=== PATIENT | male | born 1975 | race African-American/Black ===

== ENCOUNTER 2021-01-17 17:08 | Outpatient (CLI) | payer OTHER, SELFPAY ==
--- NOTE | ~2021-01-17 | US_ITS ---
EXAMINATION: US venous doppler LE RT EXAM DATE: 01/17/2021 17:45 INDICATION: Right lower extremity DVT, pain. TECHNIQUE: Multiple grayscale, color flow and Doppler images of the right lower extremity deep venous system obtained and reviewed. There is no prior study for comparison. FINDINGS: RIGHT SIDE Common femoral: -------- Normal. Profunda femoral: ------- Normal. Femoral: Thrombosed. Popliteal: Thrombosed. Posterior tibial: --------- Normal. Peroneal: Thrombosed. Gastrocnemius: Thrombosed. Soleus: Not visualized. Greater saphenous: ----- Normal. Lesser saphenous: ------ Not visualized. IMPRESSION: Large amount of right lower extremity deep venous thrombosis. I discussed with the front office staff member Brittaney to determine if patient was held for his positive results. She states that they explained to the patient the reason for staying while the ordering clin ician was notified of results. He declined. We are contacting Bree Savage MD with the resul ts. Reviewed, dictated and finalized at location A. ICIAN UNDERWRITER IMPRESSION: Large amount of right lower extremity deep venous thrombosis. I discussed with the front office staff member Brittaney to determine if patient was held for his positive results. She states that they explained to the patient th e reason for staying while the ordering clinician was notified of results. He d eclined. We are contacting Bree Savage MD with the results.
== END 2021-01-17 17:09 | disposition home or self-care (01) ==
PROVIDERS: PCP Family Medicine; Visit Provider Family Medicine
DX: M79.604 Pain in right leg (principal); I82.891 Chronic embolism and thrombosis of other specified veins
CPT/HCPCS: 93971

== ENCOUNTER 2023-05-26 12:05 | Emergency (ER) | payer OTHER, SELFPAY ==
--- NOTE | ~2023-05-26 | US_ITS ---
EXAMINATION: US venous doppler UE DATE: 05/26/2023 12:50 INDICATION: Left upper extremity swelling TECHNIQUE: Grayscale ultrasound images without and with compression and Doppler ultrasound images of the left upper extremity veins were obtained. COMPARISON: None. FINDINGS: The left internal jugular vein, subclavian vein, axillary vein, brachial veins, basilic vein, cephali c vein, radial vein, and ulnar vein are patent. IMPRESSION: 1. No evidence of deep venous thrombosis. Reviewed, dictated and finalized at location L.
[2023-05-26 12:10] VITALS: BP 140/99; PULSE 94; RESP 16; TEMP 36.5; O2SAT 100
--- NOTE | 2023-05-26 14:43 | ED.EXTPRO ---
HPI - Extremity Problem General Chief complaint: Extremity Problem,Nontraumatic Stated complaint: left hand swelling Time Seen by Provider: 05/26/23 13:01 History of Present Illness HPI Narrative: 47-year-old male with history of lower extremity DVTs and pulmonary embolisms on Eliquis and history of arthritis presented the emergency department for evaluation of swelling of the right hand. Patient states when he woke up this morning he was not having significant swelling of the right hand but the swelling did worsen throughout the course of the day. Patient did use ice and elevation on the left hand and it did improve. Patient states that over the course of the day began to worsen again. Patient states he has been taking his Eliquis. Patient denies any associated chest pain or shortness of breath. Related Data Allergies Allergy/AdvReac Type Severity Reaction Status Date / Time No Known Allergies Allergy Unverified 05/26/23 12:21 Review of Systems Review of Systems: All systems reviewed & are unremarkable except as noted in HPI and below PMFSH Past Medical History Medical History (Updated 05/27/23 @ 00:00 by Liu England) Avascular necrosis of bones of both hips Hypertension Inflammatory arthritis Myalgia Pulmonary embolism Surgical History Surgical History No pertinent past surgical history Family History Family History Other Diabetes mellitus Heart disease Hypertension Social History Social History Smoking status: Current every day smoker Alcohol intake: never Substance use: never Substance use type: does not use Lack of Transportation: No Lack of Food: Never True Current Housing: I Have Housing Concerned About Future Housing: No Difficulty Paying Gas/Electric Bills: No Difficulty Paying for Meds: No Currently Unemployed: No Education: Decline to Answer Difficulty w/ Childcare or Family Care: No Living arrangements: with family Exam Narrative: APPEARANCE: Well appearing, no pain, no distress, well-nourished. HEAD: normocephalic, atraumatic. EYES: PERRLA/EOMI, conjunctivae clear. NOSE: Normal no drainage EARS:TMS clear with good light reflex. THROAT: Pharynx clear, no exudate. NECK: Supple. No adenopathy, no masses. RESPIRATORY: Airway patent, respirations nonlabored. Clear to auscultation bilaterally, no rales, rhonchi, wheezing. CARDIOVASCULAR: Regular rate and rhythm without murmurs rubs or gallops. ABDOMINAL: Soft, nontender, nondistended, normal bowel sounds MUSCULOSKELETAL: Left upper extremity swelling with no tenderness to palpation, neurovascular intact. NEURO: Alert. Cranial nerves II through XII intact. Good gait. Good coordination SKIN: Warm, dry. Normal Color PSYCHIATRIC: Normal affect/mood. Course Course Emergency Course: 47-year-old male with left upper hand swelling. Ultrasound was negative for the left upper extremity. Patient does feel that his arthritic pain is worsened in the left hand. Patient does take Lyrica and Eliquis. Patient has no prior history of GI bleed and is not diabetic. No breakdowns in the skin and no lymphadenopathy, no concern for cellulitis or underlying infection. Patient will be started on a short course of steroids for potential arthritic flare causing the localized swelling. Patient will call to have follow-up with his primary care physician. All questions concerns were addressed Vital Signs Vital signs: Vital Signs Temperature 97.7 F 05/26/23 12:10 Pulse Rate 94 05/26/23 12:10 Respiratory Rate 16 05/26/23 12:10 Blood Pressure 140/99 H 05/26/23 12:10 Pulse Oximetry 100 05/26/23 12:10 Oxygen Delivery Room Air 05/26/23 12:10 Temperature 97.7 F 05/26/23 12:10 Pulse Rate 94 05/26/23 12:10 Respiratory Rate 16 05/26/23 12:10 B
[2023-05-26] MEDS: predniSONE 20 MG TABLET 40 MG PO (14:51)
== END 2023-05-26 14:59 | disposition home or self-care (01) ==
PROVIDERS: Emergency Provider Emergency Medicine; PCP Family Medicine
DX: R22.32 Localized swelling, mass and lump, left upper limb (principal); I10 Essential (primary) hypertension; F17.200 Nicotine dependence, unspecified, uncomplicated; Z86.718 Personal history of other venous thrombosis and embolism; Z79.01 Long term (current) use of anticoagulants; Z86.711 Personal history of pulmonary embolism
CPT/HCPCS: 93971; 99284; J7512

== ENCOUNTER 2024-03-22 10:33 | Outpatient (CLI) | payer OTHER, SELFPAY ==
[2024-03-22 10:56] LABS: Basophils Percent Auto 0.6 % (0.2-1.2); Eosinophils Absolute Auto 0.1 K/mm3 (0-0.3); Eosinophils Percent Auto 2.4 % (0-4.4); Hematocrit 41.3 % (42.0-52.0); Hemoglobin 14.1 g/dL (14.0-18.0); Immature Granulocyte Absolute 0.02 K/mm3 (0.00-0.031); Immature Granulocyte Percent A 0.4 % (0-0.5); Lymphocytes Absolute Auto 1.69 K/mm3 (0.9-3.2); Lymphocytes Percent Auto 34.2 % (18.3-44.2); Mean Corpuscular HGB Conc 34.1 g/dl (32-36); Mean Corpuscular Hemoglobin 32.2 pg (26-34); Mean Corpuscular Volume 94.3 fl (80-100); Mean Platelet Volume 10.1 fl (7.4-10.4); Monocytes Absolute Auto 0.9 K/mm3 (0.1-0.6); Monocytes Percent Auto 17.2 % (2.6-8.5); Neutrophils Absolute Auto 2.2 K/mm3 (1.3-6.7); Neutrophils Percent Auto 45.2 % (45.5-73.1); Platelet Count Result 148 k/mm3 (150-375); Red Blood Count 4.38 M/mm3 (4.6-6.20); Red Cell Distribution Width 16.1 % (11.5-14.5); White Blood Count 4.9 K/mm3 (4.5-10.0)
[2024-03-22 16:54] LABS: Iron 159 ug/dL (49-181)
[2024-03-22 17:06] LABS: Percent Iron Saturation 82 % (20-50)
[2024-03-22 17:10] LABS: Transferrin 196 mg/dL (206-381)
== END 2024-03-22 10:34 | disposition home or self-care (01) ==
LOC: ANHLAB 10:37
PROVIDERS: Nurse Practitioner Family; Visit Provider Internal Medicine Hematology & Oncology
DX: E83.110 Hereditary hemochromatosis (principal)
CPT/HCPCS: 36415; 81256; 82728; 83540; 83550; 84466; 85025

== ENCOUNTER 2024-10-14 08:35 | Outpatient (CLI) | payer OTHER, SELFPAY ==
--- NOTE | ~2024-10-14 | US_ITS ---
EXAM: ABDOMEN ULTRASOUND HISTORY: IRON OVERLOAD COMPARISON: None FINDINGS: LIVER: The liver is increased in echogenicity and size measuring 21cm in longitudinal dimension. The main portal vein is patent demonstrating hepatopedal flow GALLBLADDER: No stones are identified within the gallbladder. No gallbladder wall thickening or pericholecystic fluid. BILE DUCTS: Common bile duct measures 5.3.mm at the level of the alvarado hepatis and tapers down to 3.6 mm along its course. PANCREAS: Limited evaluation of the pancreas secondary to overlying bowel gas SPLEEN: The spleen is unremarkable in echogenicity and size measuring 8.75cm in longitudinal dimensio n. RIGHT KIDNEY: 12.75 cm. In length. No hydronephrosis or bulky renal calculi. LEFT KIDNEY: 10.74cm in length. No hydronephrosis or renal calculi. VASCULATURE : The abdominal aorta is nonaneurysmal. The IVC is patent. IMPRESSION: Fatty infiltration of an enlarged liver. Unremarkable gallbladder. Evaluation of the pancreas is limited by overlying bowel gas. Reviewed, dictated and finalized at location A. RGLASS SKI MAKER
== END 2024-10-14 08:36 | disposition home or self-care (01) ==
PROVIDERS: PCP Family Medicine; Visit Provider Internal Medicine Hematology & Oncology
DX: E83.19 Other disorders of iron metabolism (principal); K76.0 Fatty (change of) liver, not elsewhere classified
CPT/HCPCS: 76700

== ENCOUNTER 2025-04-14 00:20 | Day surgery (SDC) | payer OTHER, MEDICAID, SELFPAY ==
[2025-04-05 09:30] VITALS: BMI 26.1
--- OUTSIDE RECORDS SUMMARY | 2025-04-14 00:29 | XMS_ITS | Data Portability ---
Author Organization [place] [facility], Main Office Address [address] [place] [address] Assessment No assessment recorded. Plan of Treatment Reminders Order Date Submit Date Provider Last Modified By Organization Details Last Modified Time Details Appointments Follow Up 30 2024 10:30A Chyna Jessica NP Not available Not available Not available Lab vitamin D, 25-hydrox y, total, serum [address] [place] [address] (Lab), [address] [place] [address], [address], 01/24/2025 10:33:08 CBC w/ auto diff [address] [place] [address] (Lab), [address] [place] [address], [address], 02/07/2025 15:11:40 lipid panel, serum [address] [place] [address] (Lab), [address] [place] [address], [address], 01/24/2025 10:33:08 hepatitis C Ab, serum [address] [place] [address] (Lab), [address] [place] [address], [address], 01/24/2025 10:33:09 HbA1c (hemoglob in A1c), blood [address] [place] [address] (Lab), [address] [place] [address], [address], 01/24/2025 10:33:08 CMP, serum or plasma 2024 025 [facility] (Lab), [address], [place], [address], 01/24/2025 10:33:08 Referral rheumatol ogist referral - Please call patient to schedule an appointme nt. Thank you. 2024 025 [facility], [address], [address], [place], [address], 02/24/2025 08:27:37 Procedures None recorded. Surgeries None recorded. Imaging electroca rdiogram 2024 025 [email or web address] [facility], [address] [place] [address] [address], [place], [address], 04/06/2025 21:32:30 Medication Orders Eliquis 5 mg tablet 2024 025 [facility] #68040, [address], [place], [place], [id number], 03/09/2025 12:22:31 albuterol sulfate HFA 90 mcg/actua tion aerosol inhaler 2024 025 [facility] #89392, [address], [place], [place], [id number], 03/09/2025 12:22:33 pregabali n 200 mg capsule 2024 025 [facility] #38449, [address], [place], [place], [id number], 03/09/2025 12:22:34 pregabali n 200 mg capsule 2024 025 [facility] #53405, [address], [place], [place], [id number], 01/05/2025 11:42:50 omeprazol e 40 mg capsule,d elayed release 2023 [facility] #50076, [address], [place], [place], [id number], 08/25/2024 15:52:31 pregabali n 200 mg capsule 2023 024 [facility] #72778, [address], [place], [place], [id number], 08/25/2024 15:52:32 Patient TargetsNo targets recorded. Patient InstructionsNo instructions recorded. Reason for Referral Campaign Advisor Referral for Rheumatoid arthritis Please call patient to schedule an appointment. Thank you. Referring Physician: Loida Jessica, Family Medicine, Encounter Date: 01/05/2025 Results Created Date Observation Date Name Description Value Unit Range Abnormal Flag Note LastModifiedBy Organization Detail LastModifiedTime 05/12/20 24 05/12/2024 CLIEN T EDUCA TION TRACK ING client education tracking The Requi sitio n we recei yahir did not inclu de a [facility] accou nt numbe r. To preve nt delay s in testi ng and proce ssing of your order s pleas e provi de the follo wing infor matio n with every order submi tted: [facility] accou nt numbe r and accou nt name Clien t addre ss Clien t phone and fax numbe r NPI numbe r of order ing physi irene along with the physi irene name. Not Available [employer] [facility] [address], [place], [address], 05/12/2024 10:50:41 05/12/20 24 05/12/2024 TEST [facility] question/pro blem: There is a quest ion regar ding the follo wing speci men submi tted and/o r the test reque sted. Not Available [address], [address], 05/12/2024 10:50:42 05/12/20 24 05/12/2024 TEST IN [facility] question: [id number] / URINE DRUG ABUSE PANEL 10 Not Available [address], [address], 05/12/2024 10:50:42 05/12/20 24 05/12/2024 TEST IN [facility] contact: * Not Available [address], [address], 05/12/2024 10:50:42 05/12/20 24 05/12/2024 TEST IN [facility] comment REQUE EVELIOD INFOR MARIA DEL ROSARIO N ___ AUTHO RIZED SIGNA TURE ____ TO PREVE NT FURTH ER DELAY S IN TESTI ERICK ROBISON COMPL ETE INFOR MATDEVIN N ABOVE AND FAX TO [phone] TO RESOL VE THIS ORDER . NO COLLE CTION DATE RECEI YAHIR. WE HAVE USED THE DATE THE SPECI MEN WAS RECEI YAIHR BY THIS LABOR ATORY THE COLLE CTION DATE. IF THIS IS INCOR RECT, PLEAS E CONTA CT CLIEN T SERVI MELVI. PHONE CECIE R: [phone] Not Available [address] [address] [place], [address], 05/12/2024 10:50:42 05/18/20 24 05/18/2024 TEST AUTHO RIZAT ION test name: DRUG MONITO R, PANEL 3, SCREEN Not Available [address] [address] [place], [address], 05/18/2024 23:53:29 05/18/20 24 05/18/2024 TEST AUTHO RIZAT ION test code: 24321M CB Not Available [facility] [address] [address] [place], [address], 05/18/2024 23:53:29 05/18/20 24 05/18/2024 TEST AUTHO RIZAT ION client contact: ASHISH CLAIRE Not Available [facility] [address] [address] [address] , [place], [address], 05/18/2024 23:53:29 05/18/20 24 05/18/2024 TEST AUTHO RIZAT ION report always message signature The labor atory testi ng on this patie nt was verba lly reque sted or confi rmed by the order ing physi irene or his or her autho rized repre senta tive after conta ct with an emplo menjivar of [facility] al regul ation s requi re that we maint ain on file writt en autho rizat ion for all labor atory testi ng. Accor dingl y we are askin g that the order ing physi irene or his or her autho rized repre senta tive sign a copy of this repor t and promp tly retur n it to the clien t servi ce repre alex arreola. Signa ture: __ Not Available [employer] [address] [address] [place], [address], 05/18/2024 23:53:29 05/18/20 24 05/18/2024 TEST AUTHO RAYNE ION comment Fax noa r: [phone] Not Available [facility] [address] [address] [place], [address], 05/18/2024 23:53:29 05/18/20 24 05/18/2024 DRUG MONIT OR, PANEL 3, SCREE N, URINE amphetamines NEGATI VE NG/mL <500 See Note A See Note A Not Available [facility] [address] [address] [address], [place], [address], 05/18/2024 23:53:29 05/18/20 24 05/18/2024 DRUG MONIT OR, PANEL 3, SCREE N, URINE benzodiazepi brian NEGATI VE NG/mL <100 See Note A See Note A Not Available [employer] [address] [address] [place], [address], 05/18/2024 23:53:29 05/18/20 24 05/18/2024 DRUG MONIT OR, PANEL 3, SCREE N, URINE cocaine metabolite NEGATI VE NG/mL <150 See Note A See Note A Not Available [facility] [address] [address] [place], [address], 05/18/2024 23:53:29 05/18/20 24 05/18/2024 DRUG MONIT OR, PANEL 3, SCREE N, URINE marijuana metabolite NEGATI VE NG/mL <20 See Note A See Note A Not Available [facility] [address] [address] [place], [address], 05/18/2024 23:53:29 05/18/20 24 05/18/2024 DRUG MONIT OR, PANEL 3, SCREE N, URINE opiates NEGATI VE NG/mL <100 See Note A See Note A Not Available [address] [address] [address], [place], [address], 05/18/2024 23:53:29 05/18/20 24 05/18/2024 DRUG MONIT OR, PANEL 3, SCREE N, URINE oxycodone NEGATI VE NG/mL <100 See Note A See Note A Not Available [address] [address], [place], [address], 05/18/2024 23:53:29 05/18/20 24 05/18/2024 DRUG MONIT OR, PANEL 3, SCREE N, URINE creatinine 20.1 mg/dL > or = 20.0 Not Available [address] [address], [place], [address], 05/18/2024 23:53:29 05/18/20 24 05/18/2024 DRUG MONIT OR, PANEL 3, SCREE N, URINE pH 5.9 4.5-9. 0 Not Available [address] [address] [address], [place], [address], 05/18/2024 23:53:29 05/18/20 24 05/18/2024 DRUG MONIT OR, PANEL 3, SCREE N, URINE oxidant NEGATI VE mcg/m L <200 Not Available [address] [address] [address], [place], [address], 05/18/2024 23:53:29 05/18/20 24 05/18/2024 DRUG MONIT ORING TEMPL ATE notes and comments This drug testi ng is for medic al treat ment only. Karolina sis was perfo rmed as non-f orens ic testi ng and these resul ts shoul d be used only by healt hcare provi ders to rende r diagn osis or treat ment, or to monit or progr ess of medic al condi tions . Note A: The resul ts are presu mptiv e; based only on deedee hallman ds, and they have not been confi rmed by a alejandro Schwartz hcare Provi ders needi ng Inter preta tion arron tance , pleas e conta ct us at 1.877 .40.R XTOX (1.87 [phone] .[phone] ) M-F, 8am to 10pm EST Not Available [facility] [address] [place], [address], 05/18/2024 23:53:30 09/06/20 24 09/06/2024 XR, hip + pelvi s, bilat eral, 2 view No observ ation record ed. [facility] [address] [place], [address], 09/06/2024 15:50:16 09/06/20 24 09/06/2024 XR, lumba r spine No observ ation record ed. [facility] [address] [place], [address], 09/06/2024 15:49:51 09/06/20 24 09/06/2024 XR, thora cic spine , 3 view No observ ation record ed. [facility] [address] [place], [address], 09/06/2024 15:49:07 10/14/20 24 10/14/2024 US, abdom en No observ ation record ed. [email or web address], [place], [address], 10/15/2024 14:12:09 10/19/20 24 10/19/2024 MAMMO , scree rebecca, digit al, bilat eral No observ ation record ed. [email or web address] [place], [address], 12/30/2024 10:44:31 02/07/20 25 02/03/2025 XR, foot No observ ation record ed. [email or web address] [facility] [address], [place], [address], 02/06/2025 13:32:21 03/27/20 25 03/27/2025 XR, chest , 2 view No observ ation record ed. [facility] [address], [place], [address], 03/28/2025 09:35:18 03/28/20 25 03/27/2025 lab* No observ ation record ed. [facility] [address], [place], [address], 03/28/2025 21:18:20 04/06/20 25 elect cole pelaez am No observ ation record ed. [email or web address] [facility] [address], [place], [address], 04/06/2025 10:45:35 Result Notes None recorded. 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 22210553 Active Not Available [facility] 3 10:45:36 Enthesopathy of hip region 35458833 Active Not Available [facility] 3 10:45:36 Pain of hip region 57171941 Active Not Available [facility] 3 10:45:36 Obstructive sleep apnea syndrome 97179072 Active 2020 Not Available [facility] 3 10:45:36 Liver enzymes level above reference range 710651033 Active 2022 Bree Melendez MD [address], [address], [place], [address] , [place] [facility] 3 15:05:31 Rheumatoid arthritis 52423478 Active 2022 Bree Melendez MD [address], [address], [place], [address] , [place] [facility] 3 15:08:35 Postviral cough 028707712 Active 2022 Bree Melendez MD [address], [address], [place], [address] , [place] [facility] 3 15:10:15 Elevated blood-pressur e reading without diagnosis of hypertension 750979957 Active 2022 Bree Melendez MD [address], [address], [place], [address] , [place] [facility] 3 15:11:28 Essential hypertension 27568951 Active 2022 Bree Melendez MD [address], [address], [place], [address] , [place] [facility] 3 17:46:27 Neuropathy 780922257 Active 2022 Bree Melendez MD [address], [address], [place], [address] , [place] [facility] 3 10:28:16 Serum iron above reference range 216271870 Active 2022 Bree Melendez MD [address], [place], [address] , [place] [facility] 3 10:13:12 Low back pain 723162498 Active 2022 GERARDO Prince [address], [place], [address] , [place] [facility] 3 09:05:23 Dysuria 95173324 Active 2022 GERARDO Prince [address], [place], [address] , [facility] 3 09:13:29 Skin lesion 76751117 Active 2022 Martin GERARDO Smith [address], [address], [place], [address] , [facility] 3 09:18:28 Erectile dysfunction 880035833 Active 2023 Bree Melendez MD [address], [place], [address] , [employer] [facility] 4 12:05:31 Degeneration of lumbar intervertebra l disc 86288131 Active 2023 Bree Melendez MD [address], [address], [place], [address] , [employer] - [facility] 4 10:49:59 Gastroesophag eal reflux disease without esophagitis 299868670 Active 2023 GERARDO Wyatt [address], [place], [address] , [employer] [facility] 4 15:57:15 Pain in right lower limb 502204491 Active 2024 GERARDO Wyatt [address], [place], [address] , [employer] [facility] 5 10:43:17 Notes:Medical History: Rhini tis to multiple environmental allergens Eosinophils 70/uL IgE 459 IU/mL (+) Aspergillus fumigatus IgE Mod OSAHS, AHI = 19, 07/31/21 Alpha- 1 antitrypsin PiMM 127 mg% PE Recurrent right popliteal vein thrombosis off Eliquis, on warfarin since 01/19/21 EF 60% VICTORIA Hepatic steatosis ED Osteoarthritis Procedure History: Bilateral feet fibroma excisions 2017, 2019 Bilateral hip replacement for necrosis 2019 Problem Notes None recorded. Procedures Surgical History None recorded. Imaging Results Imaging Date Name Status LastModified by Organization Details LastModified Time 09/06/2024 XR, hip + pelvis, bilateral, 2 view completed llalor [facility] [address] [place], [address], 09/06/2024 15:50:16 09/06/2024 [facility] [address] [place], [address], 09/06/2024 15:49:51 09/06/2024 XR, thoracic spine, 3 view completed [facility] [address] [place], [address], 09/06/2024 15:49:07 10/14/2024 US, abdomen completed [address], [place], [address], 10/15/2024 14:12:09 10/19/2024 MAMMO, screening, digital, bilateral completed [email or web address] [facility] [address] [place], [address], 12/30/2024 10:44:31 02/03/2025 XR, foot completed [email or web address] [place] [address], [place], [address], 02/06/2025 13:32:21 03/27/2025 XR, chest, [address] view [address] [facility] [address] [facility] [address], [place], [address], 03/28/2025 09:35:18 03/27/2025 lab* completed [email or web address] [facility] [address] [place] [address], [place], [address], 03/28/2025 21:18:20 04/06/2025 electrocardiogram completed [email or web address] [facility] [address], [place], [address], 04/06/2025 10:45:35 Procedure Notes None recorded. Medical Equipment None Reported. Allergies No known drug allergies Medications Name Sig Start Date Stop Date Status Note LastModified by Organization Details LastModified Time celecoxib 200 mg capsule active Not Available Not Available Not Available cyclobenz aprine 10 mg tablet Take 1 tablet 3 times a day by oral route as needed for 10 days. active Not Available Not Available No t Available azithromy lidia 250 mg tablet TK 2 TS PO ON DAY 1, THEN TK 1 T PO D FOR 4 DAYS active Not Available Not Available No t Available ibuprofen 800 mg tablet TAKE 1 TABLET BY MOUTH THREE TIMES DAILY NEEDED FOR 30 DAYS 06/19 completed Not Available Not Available Not Available tizanidin e 4 mg tablet TAKE 1 TABLET BY MOUTH EVERY 8 HOURS NEEDED 01/05 completed Not Available Not Available Not Available hydrocodo ne 5 mg-acetam inophen 325 mg tablet TAKE 1 TABLET BY MOUTH 2 TO 3 TIMES DAILY NEEDED active Not Available Not Available No t Available warfarin 10 mg tablet 12/26 completed Not Available Not Available Not Available prednison e 20 mg tablet Take 4 tabs x 3 days, 3 tabs x 3 days, 2 tabs x 2 days, , 1 tab x 2 days active Not Available Not Available No t Available Viagra 50 mg tablet 07/29 completed Not Available Not Available Not Available sulfameth oxazole 800 mg-trimet hoprim 160 mg tablet TAKE 1 TABLET BY MOUTH EVERY 12 HOURS FOR 7 DAYS 03/01 completed Not Available Not Available Not Available omeprazol e 40 mg capsule,d elayed release TAKE 1 CAPSULE BY MOUTH EVERY DAY active Not Available Not Available No t Available tramadol 50 mg tablet Take 1 tablet every 6 hours by oral route as needed for 10 days. active Not Available Not Available No t Available oxycodone -acetamin ophen 5 mg-325 mg tablet active Not Available Not Available Not Available hydrocodo ne 7.5 mg-acetam inophen 325 mg tablet 08/08 completed Not Available Not Available Not Available cephalexi n 500 mg capsule 08/08 completed Not Available Not Available Not Available prednison e 50 mg tablet TAKE 1 TABLET BY MOUTH DAILY FOR 4 DAYS 07/08 completed Not Available Not Available Not Available warfarin 5 mg tablet TAKE 1 TABLET BY MOUTH EVERY DAY. EXCEPT ON TU TAKE 1 1/2 TABLET 07/29 completed Not Available Not Available Not Available gabapenti n 300 mg capsule TAKE 1 CAPSULE BY MOUTH TWICE DAILY NEEDED FOR PAIN 11/06 completed Not Available Not Available Not Available diclofena c sodium 75 mg tablet,de layed release 06/19 completed Not Available Not Available Not Available mupirocin 2 % topical ointment 08/08 completed Not Available Not Available Not Available polyethyl louise glycol 3350 17 gram/dose oral powder 08/08 completed Not Available Not Available Not Available methylpre dnisolone 4 mg tablets in a dose pack Take 6 tabs on day one, 5 tabs on day two, 4 tabs on day three, 3 tabs on day four, 2 tabs on day five, and 1 tab on day six 06/19 completed Not Available Not Available Not Available albuterol sulfate HFA 90 mcg/actua tion aerosol inhaler INHALE 2 PUFFS BY MOUTH EVERY 4 HOURS NEEDED active Not Available Not Available No t Available losartan 100 mg tablet TAKE 1 TABLET BY MOUTH EVERY DAY 01/05 completed Not Available Not Available Not Available naproxen 500 mg tablet 08/08 completed Not Available Not Available Not Available oxycodone 5 mg tablet active Not Available Not Available Not Available cyclobenz aprine 5 mg tablet 01/05 completed Not Available Not Available Not Available Senna Plus 8.6 mg-50 mg tablet TAKE 2 TABLETS BY MOUTH TWICE A DAY TO PREVENT CONSTIPA TION HOLD FOR LOOSE STOOLS 08/08 completed Not Available Not Available Not Available tadalafil 20 mg tablet TAKE 1/2 TO 1 TABLET BY MOUTH EVERY DAY 60 MINUTES BEFORE SEXUAL ACTIVITY active Not Available Not Available No t Available pregabali n 150 mg capsule TAKE 1 CAPSULE BY MOUTH TWICE DAILY 01/05 completed Not Available Not Available Not Available pregabali n 200 mg capsule TAKE 1 CAPSULE BY MOUTH TWICE DAILY active Not Available Not Available No t Available Vicodin 08/08 completed Not Available Not Available Not Available Voltaren 1 % topical gel APPLY 2 GRAM TO THE AFFECTED AREA(S) BY TOPICAL ROUTE 4 TIMES PER DAY active Not Available Not Available No t Available Suprep Bowel Prep Kit 17.5 gram-3.13 gram-1.6 gram oral solution MX AND DRK UTD active Not Available Not Available No t Available Xarelto 15 mg tablet Take 1 tablet every day by oral route. 05/06 completed samples given, pt will start only if US is positive for DVT Not Available Not Available Not Available Eliquis 5 mg tablet TAKE 1 TABLET BY MOUTH TWICE DAILY 2024 active Not Available Not Available Not Avai lable Eliquis 2.5 mg tablet active Not Available Not Available Not Available Breo Ellipta 01/05 completed Not Available Not Available Not Available OxyContin 10 mg tablet,cr ush resistant ,extended release TAKE 1 TABLET BY MOUTH EVERY 12 HOURS 08/08 completed Not Available Not Available Not Available Stiolto Respimat 2.5 mcg-2.5 mcg/actua tion solution for inhalatio n Inhale 2 puffs every day by inhalati on route. 01/05 completed Not Available Not Available Not Available BinaxNOW COVID-19 Ag Self Test kit TEST DIRECTED TODAY 01/05 completed Not Available Not Available Not Available Vitals Date Recorded Body height Body mass index (BMI) Body weight Body temperature Heart rate Oxygen saturation Oxygen saturation in Arterial blood by Pulse oximetry Systolic blood pressure Diastolic blood pressure Provider Name and Address Organization Details Last Updated DateTime 4 187.96 cm 26.4 kg/m2 14869.0 3 g 98.6 [degF] 127 /min 97 % 97 % 144 mm[Hg] 72 mm[Hg] Ernesto Moreno RN [facility] [employer] [facility] 4 15:36:06 Date Recorded Body height Body mass index (BMI) Body weight Heart rate Oxygen saturation Oxygen saturation in Arterial blood by Pulse oximetry Systolic blood pressure Diastolic blood pressure Provider Name and Address Organization Details Last Updated DateTime 5 187.96 cm 27.9 kg/m2 28294.5 4 g 101 /min 98 % 98 % 154 mm[Hg] 82 mm[Hg] Ernesto Moreno RN [facility] [employer] [facility] 5 11:25:44 Date Recorded Body height Body mass index (BMI) Body weight Body temperature Heart rate Oxygen saturation Oxygen saturation in Arterial blood by Pulse oximetry Pain severity - 0-10 verbal numeric rating [Score] - Reported Systolic blood pressure Diastolic blood pressure Provider Name and Address Organization Details Last Updated DateTime 5 187.96 cm 27.2 kg/m2 16430.7 9 g 98.4 [degF] 96 /min 98 % 98 % 8 128 mm[Hg] 70 mm[Hg] Maddy Pelaez MA MA - [facility] [employer] 5 11:51:53 Date Recorded Body height Body mass index (BMI) Body weight Body temperature Heart rate Oxygen saturation Oxygen saturation in Arterial blood by Pulse oximetry Systolic blood pressure Diastolic blood pressure Provider Name and Address Organization Details Last Updated DateTime 5 187.96 cm 27.2 kg/m2 29604.5 8 g 98.2 [degF] 102 /min 98 % 98 % 130 mm[Hg] 90 mm[Hg] EDEL Ortega MA [employer] [facility] [employer] 5 10:41:04 Social History Question Answer Notes LastModified by Organizat ion Details LastModified Time Tobacco Smoking Status Current Every Day Smoker cigars Not Available [employer] 01/28/2023 10:41:46 What Is Your Level Of Caffeine Consumption? None [id number] Information not available 01/28/2023 How Much Tobacco Do You Chew? None [id number] Information not available 01/28/2023 In The 14 Days Before Symptom Onset, Have You Had Close Contact With A Laboratory-confi rmed COVID-19 While That Case Was Ill? No [id number] Information not available 01/28/2023 In The 14 Days Before Symptom Onset, Have You Had Close Contact With A Person Who Is Under Investigation For COVID-19 While That Person Was Ill? No [id number] Information not available 01/28/2023 What Type Of Diet Are You Following? REGULAR [id number] Information not available 01/28/2023 Which Illicit Or Recreational Drugs Have You Used? None [id number] Information not available 01/28/2023 What Is The Highest Grade Or Level Of School You Have Completed Or The Highest Degree You Have Received? [id number] Information not available 01/28/2023 Are There Any Guns Present In Your Home? No [id number] Information not available 01/28/2023 Where Do You Live? [place] [id number] Information not available 01/28/2023 What Was The Date Of Your Most Recent Tobacco Screening? 03/09/2025 [email or web address] Information not available 03/09/2025 Do You Have Any Pets? No [id number] Information not available 01/28/2023 What Is Your Relationship Status? Single [id number] Information not available 01/28/2023 Do You Use Your Seat Belt Or Car Seat Routinely? Yes [id number] Information not available 01/28/2023 Do You Have Smoke And Carbon Monoxide Detectors In Your Home? Yes [id number] Information not available 01/28/2023 Do You Use Sunscreen Routinely? Yes [id number] Information not available 01/28/2023 How Many Years Have You Smoked Tobacco? 20 [id number] Information not available 01/28/2023 Sex: Male Functional Status Question Answer Note LastModified by Organizat ion Details LastModified Time What is your level of alcohol consumption? Moderate [id number] Information not available 01/28/2023 Do you or have you ever used smokeless tob [id number]|2025-04-07 10:43:37|2025-04-07 10:43:37|ION.PREOP||||"Spoke with patient's Josefina. Confirmed with her that the patient's last dose of Eliquis will be on 04/11/25 and the endoscopist will inform them when to resume. "
--- OUTSIDE RECORDS SUMMARY | 2025-04-14 00:29 | XMS_ITS | Data Portability ---
Author Organization Leidy FABIAN Address [address] [place] [address] Assessment No assessment recorded. Plan of Treatment Reminders Order Date Submit Date Provider Last Modified By Organization Details Last Modified Time Details Appointments None recorded. Lab PSA, total, serum or plasma 2017 [facility], [address] [place], [place] [address]tushar Ayaan, [address], [place], [address], 15:10:08 urinalysis , complete 2017 [facility], [address] [place] [address], [address], [place], [address], 15:10:07 culture, urine 2017 [facility], [address] [place] [address], [address], [place], [address], 8 15:10:09 amylase + lipase, serum 2017 [facility], [address] [place], [place] [address] Ayaan, [address], [place], [address], 8 15:10:07 CBC w/ auto diff 2017 [facility], [address] [place], [place] [address] Ayaan, [address], [place], [address], 8 15:10:06 CMP, serum or plasma 2017 018 [facility], Gabrielle Kuo, [address], [place], [address], 8 15:10:06 PT/PTT, plasma 2016 017 [facility], Gabrielle Mcguire Ayaan, [address], [place], [address], 7 19:07:53 lipid panel, serum 2016 017 [facility], Gabrielle Mcguire Ayaan, [address], [place], [address], 7 19:07:52 unlisted lab - compliance drug analysis, ur 2016 017 [facility], Gabrielle Mcguire Aya[address], [address], [place], [address], 7 10:16:03 CMP, serum or plasma 2016 017 [facility], Gabrielle Mcguire Ayaan, [address], [place], [address], 7 19:07:52 CBC w/ auto diff 2016 017 [facility], Gabrielle Mcguire Ayaan, [address], [place], [address], 7 19:07:51 amylase + lipase, serum 2016 017 [facility], Gabrielle Mcguire [address]ya[address], [address], [place], [address], 7 19:07:54 testostero ne, free + total, serum 2016 017 [facility], Gabrielle Mcguire Ayaan, [address], [place], [address], 7 19:07:53 PSA, serum or plasma 2016 017 [facility], [address], [address], [place], [address], 7 19:07:54 Referral urologist referral - Please call patient to schedule appt. Thank you 2017 018 [email or web address] Gerry Matthews MD, [address] [facility] [address], [place], [address], 9 15:30:06 general surgeon referral - Please call patient to schedule 2016 017 [email or web address] Not available 11:19:35 gastroente rologist referral - Please call patient to schedule colonoscop y 2016 017 cleveland Walker MD, [address] [facility], [address], [place], [address], 7 15:25:24 Procedures None recorded. Surgeries None recorded. Imaging US, kidney [address] ([facility]), [address] [facility], [place], [address], 8 11:34:41 US, gallbladde r [address] ([facility]), [address] [facility], [place], [address], 8 11:34:41 CT, abdomen + pelvis, w/o contrast 2016 017 [email or web address] Not available 7 17:28:45 Medication Orders cyclobenza eddie 10 mg tablet 2016 017 [email or web address] [facility] #[id number], [address] [facility] [place], [id number], 7 16:39:41 Anusol-HC 2.5 % topical cream 2016 017 [email or web address] [facility] #[id number], [address], [place], [place], [id number], 7 16:39:35 Patient TargetsNo targets recorded. Patient Instructions Encounter Date Encounter Id Patient Instructions Last Modified By Organization Details Last Modified Time 12/05/[id number] scan of the abdomen: about this test [facility] Not available 12/05/2016 12:44:03 Erection Problems: Care Instructions [email or web address] Not available 12/05/2016 12:44:03 01/08/2017 [id number] Decreased Male Libido: Care Instructions [email or web address] Not available 01/13/2017 17:02:39 rectal bleeding: care instructions [email or web address] Not available 01/13/2017 17:02:39 Reason for Referral Please call patient to sched [facility] colonoscopy Referring Physician: [facility], Encounter Date: 12/05/2016 General Surgeon Referral for Left inguinal hernia Please call patient to schedule Referring Physician: Kat [facility], Encounter Date: 04/03/2017 Urologist Referral for Recur rent hematuria Please call patient to schedule appt. Thank you Referring Physician: Kat [facility], Encounter Date: 09/24/2018 Results Created Date Observation Date Name Description Value Unit Range Abnormal Flag Note LastModifiedBy Organization Detail LastModifiedTime 12/05/19 17 12/12/2016 drug scree n, urine summary FINAL ===== ===== ===== ===== ===== ===== ===== ===== ===== ===== ===== ===== ===== === TOXAS SURE COMP DRUG SANAZ SIS,U R ===== ===== ===== ===== ===== ===== ===== ===== ===== ===== ===== ===== ===== === TEST RESUL T FLAG UNITS DRUG PRESE NT ALCOH OL, ETHYL 0.055 G/DL SOURC ES OF ETHYL ALCOH OL INCLU DE ALCOH OLIC BEVER AGES OR A FERME NTATI ON PRODU CT OF GLUCO SE; GLUCO SE WAS NOT DETEC LEONARD IN THIS SPECI MEN. ETHYL ALCOH OL RESUL T SHOUL D BE INTER PRETE D IN THE AMY XT OF ALL AVAIL ABLE CLINI ALLISON AND BEHAV IORAL INFOR MATIO N. HYDRO CODON E 141 NG/MG CREAT HYDRO MORPH ONE 101 NG/MG CREAT SOURC ES OF HYDRO CODON E INCLU DE SCHED ULED PRESC RIPTI ON MEDIC ATION S. HYDRO MORPH ONE IS AN EXPEC LEONARD METAB OLITE OF HYDRO CODON E. HYDRO MORPH ONE IS ALSO AVAIL ABLE A SCHED ULED PRESC RIPTI ON MEDIC ATION . ===== ===== ===== ===== ===== ===== ===== ===== ===== ===== ===== ===== ===== === TEST RESUL T FLAG UNITS REF RANGE CREAT ININE 93 MG/DL >=20 ===== ===== ===== ===== ===== ===== ===== ===== ===== ===== ===== ===== ===== === DECLA RED MEDIC ATION S: MEDIC ATION LIST WAS NOT PROVI DED. ===== ===== ===== ===== ===== ===== ===== ===== ===== ===== ===== ===== ===== === FOR CLINI ALLISON CONSU LTATI ON, PLEAS E CALL [phone]. ===== ===== ===== ===== ===== ===== ===== ===== ===== ===== ===== ===== ===== === Not Available [facility] [address], [place], [address], 12/12/2016 10:16:03 12/05/19 17 12/12/2016 drug scree n, urine pdf . Not Available [facility] [address], [place], [address], 12/12/2016 10:16:03 01/07/20 17 01/08/2017 CBC w/ auto diff WBC 6.7 x10e3 /uL 3.4-10 .8 Not Available [facility] ([facility]) [address] [place], [address], 01/08/2017 19:07:51 01/07/2001/08/2017 CBC w/ auto diff RBC 5.71 x10e6 /uL 4.14-5 .80 Not Available [facility] ([facility]) [address] [place], [address], 01/08/2017 19:07:51 01/07/20 17 01/08/2017 CBC w/ auto diff hemoglobin 16.6 g/dL 12.6-1 7.7 Not Available [facility] ([facility]) [address] [place], [address], 01/08/2017 19:07:51 01/07/2001/08/2017 CBC w/ auto diff hematocrit 49.7 % 37.5-5 1.0 Not Available [facility] ([facility]) [address] [place], [address], 01/08/2017 19:07:51 01/07/20 17 01/08/2017 CBC w/ auto diff MCV 87 fL 79-97 Not Available [facility] ([facility]) [address] [facility], [place], [address], 01/08/2017 19:07:51 01/07/20 17 01/08/2017 CBC w/ auto diff MCH 29.1 pg 26.6-3 3.0 Not Available [facility] ([facility]) [address] [facility], [place], [address], 01/08/2017 19:07:51 01/07/20 17 01/08/2017 CBC w/ auto diff MCHC 33.4 g/dL 31.5-3 5.7 Not Available [facility] ([facility]) [address] [facility], [place], [address], 01/08/2017 19:07:51 01/07/20 17 01/08/2017 CBC w/ auto diff RDW 14.1 % 12.3-1 5.4 Not Available [facility] ([facility]) [address] [facility], [place], [address], 01/08/2017 19:07:51 01/07/20 17 01/08/2017 CBC w/ auto diff platelets 184 x10e3 /uL 150-37 9 Not Available [facility] ([facility]) [address] [place], [address], 01/08/2017 19:07:51 01/07/20 17 01/08/2017 CBC w/ auto diff neutrophils 61 % Not Available [facility] ([facility]) [address] [place], [address], 01/08/2017 19:07:51 01/07/20 17 01/08/2017 CBC w/ auto diff lymphs 28 % Not Available [facility] ([facility]) [address] [place], [address], 01/08/2017 19:07:51 01/07/20 17 01/08/2017 CBC w/ auto diff monocytes 10 % Not Available [facility] ([facility]) [address] [place], [address], 01/08/2017 19:07:51 01/07/20 17 01/08/2017 CBC w/ auto diff eos 1 % Not Available [facility] ([facility]) [address] [place], [address], 01/08/2017 19:07:51 01/07/20 17 01/08/2017 CBC w/ auto diff basos 0 % Not Available [facility] ([facility]) [address] [place], [address], 01/08/2017 19:07:51 01/07/20 17 01/08/2017 CBC w/ auto diff immature cells DEMO SPECIALIST Not Available [facility] ([facility]) [address] [place], [address], 01/08/2017 19:07:51 01/07/20 17 01/08/2017 CBC w/ auto diff neutrophils (absolute) 4.1 x10e3 /uL 1.4-7. 0 Not Available [facility] ([facility]) [address] [place], [address], 01/08/2017 19:07:51 01/07/20 17 01/08/2017 CBC w/ auto diff lymphs (absolute) 1.9 x10e3 /uL 0.7-3. 1 Not Available [facility] ([facility]) [address] [place], [address], 01/08/2017 19:07:51 01/07/20 17 01/08/2017 CBC w/ auto diff monocytes(ab solute) 0.7 x10e3 /uL 0.1-0. 9 Not Available [facility] ([facility]) [address] [place], [address], 01/08/2017 19:07:51 01/07/20 17 01/08/2017 CBC w/ auto diff eos (absolute) 0.0 x10e3 /uL 0.0-0. 4 Not Available [facility] ([facility]) [address] [place], [address], 01/08/2017 19:07:51 01/07/20 17 01/08/2017 CBC w/ auto diff baso (absolute) 0.0 x10e3 /uL 0.0-0. 2 Not Available [facility] ([facility]) [address] [place], [address], 01/08/2017 19:07:51 01/07/20 17 01/08/2017 CBC w/ auto diff immature granulocytes 0 % Not Available [facility] ([facility]) [address] [place], [address], 01/08/2017 19:07:51 01/07/20 17 01/08/2017 CBC w/ auto diff immature grans (abs) 0.0 x10e3 /uL 0.0-0. 1 Not Available [facility] ([facility]) [address] [facility], [place], [address], 01/08/2017 19:07:51 01/07/20 17 01/08/2017 CBC w/ auto diff NRBC DEMO SPECIALIST Not Available [facility] ([facility]) [address] [facility], [place], [address], 01/08/2017 19:07:51 01/07/20 17 01/08/2017 CBC w/ auto diff hematology comments: DEMO SPECIALIST Not Available [facility] ([facility]) [address] [place], [address], 01/08/2017 19:07:51 01/07/20 17 01/08/2017 CMP, serum or plasm a glucose, serum 74 mg/dL 65-99 SPECI MEN RECEI SABRINA IN CONTA CT WITH CELLS . NO VISIB LE HEMOL YSIS PRESE NT. HOWEV ER GLUC MAY BE DECRE ASED AND K INCRE ASED. CLINI ALLISON CORRE LATIO N INDIC ATED. Not Available [facility] ([facility]) [address] [facility] [place], [address], 01/08/2017 19:07:52 01/07/20 17 01/08/2017 CMP, serum or plasm a BUN 11 mg/dL 6-24 Not Available [facility] ([facility]) [address] [facility] [place], [address], 01/08/2017 19:07:52 01/07/20 17 01/08/2017 CMP, serum or plasm a creatinine, serum 1.00 mg/dL 0.76-1 .27 Not Available [facility] ([facility]) [address] [place], [address], 01/08/2017 19:07:52 01/07/20 17 01/08/2017 CMP, serum or plasm a eGFR if nonafricn AM 92 mL/mi n/1.7 3 >59 Not Available [facility] ([facility]) [address] [place], [address], 01/08/2017 19:07:52 01/07/20 17 01/08/2017 CMP, serum or plasm a eGFR if africn AM 106 mL/mi n/1.7 3 >59 Not Available [facility] ([facility]) [address] [facility], [place], [address], 01/08/2017 19:07:52 01/07/20 17 01/08/2017 CMP, serum or plasm a BUN/creatini ne ratio 11 9-20 Not Available [facility] ([facility]) [address] [place], [address], 01/08/2017 19:07:52 01/07/20 17 01/08/2017 CMP, serum or plasm a sodium, serum 142 mmol/ L 134-14 4 Not Available [facility] ([facility]) [address] [place], [address], 01/08/2017 19:07:52 01/07/20 17 01/08/2017 CMP, serum or plasm a potassium, serum 4.5 mmol/ L 3.5-5. 2 Not Available [facility] ([facility]) [address] [facility] [place], [address], 01/08/2017 19:07:52 01/07/2001/08/2017 CMP, serum or plasm a chloride, serum 97 mmol/ L 96-106 Not Available [facility] ([facility]) [address] [facility] [place], [address], 01/08/2017 19:07:52 01/07/2001/08/2017 CMP, serum or plasm a carbon dioxide, total 22 mmol/ L 18-29 Not Available [facility] ([facility]) [address] [facility] [place], [address], 01/08/2017 19:07:52 01/07/2001/08/2017 CMP, serum or plasm a calcium, serum 9.8 mg/dL 8.7-10 .2 Not Available [facility] ([facility]) [address] [place], [address], 01/08/2017 19:07:52 01/07/2001/08/2017 CMP, serum or plasm a protein, total, serum 7.5 g/dL 6.0-8. 5 Not Available [facility] ([facility]) [address] [place], [address], 01/08/2017 19:07:52 01/07/2001/08/2017 CMP, serum or plasm a albumin, serum 4.6 g/dL 3.5-5. 5 Not Available [facility] ([facility]) [address] [facility] [place], [address], 01/08/2017 19:07:52 01/07/2001/08/2017 CMP, serum or plasm a globulin, total 2.9 g/dL 1.5-4. 5 Not Available [facility] ([facility]) [address] [place], [address], 01/08/2017 19:07:52 01/07/20 17 01/08/2017 CMP, serum or plasm a A/G ratio 1.6 1.1-2. 5 Not Available [facility] ([facility]) [address] [place], [address], 01/08/2017 19:07:52 01/07/2001/08/2017 CMP, serum or plasm a bilirubin, total 0.5 mg/dL 0.0-1. 2 Not Available [facility] ([facility]) [address] [place], [address], 01/08/2017 19:07:52 01/07/2001/08/2017 CMP, serum or plasm a alkaline phosphatase, S 50 IU/L 39-117 Not Available [facility] ([facility]) [address] [place], [address], 01/08/2017 19:07:52 01/07/2001/08/2017 CMP, serum or plasm a AST (SGOT) 48 IU/L 0-40 above high normal Not Available [facility] ([facility]) [address] [place], [address], 01/08/2017 19:07:52 01/07/20 17 01/08/2017 CMP, serum or plasm a ALT (SGPT) 47 IU/L 0-44 above high normal Not Available [facility] ([facility]) [address] [place], [address], 01/08/2017 19:07:52 01/07/2001/08/2017 lipid panel , serum cholesterol, total 232 mg/dL 100-19 9 above high normal Not Available [facility] ([facility]) [address] [place], [address], 01/08/2017 19:07:52 01/07/2001/08/2017 lipid panel , serum triglyceride s 174 mg/dL 0-149 above high normal Not Available [facility] ([facility]) [address] [facility], [place], [address], 01/08/2017 19:07:52 01/07/20 17 01/08/2017 lipid panel , serum HDL cholesterol 107 mg/dL >39 Not Available [facility] ([facility]) [address] [facility], [place], [address], 01/08/2017 19:07:52 01/07/20 17 01/08/2017 lipid panel , serum VLDL cholesterol allison 35 mg/dL 5-40 Not Available [facility] ([facility]) [address] [facility], [place], [address], 01/08/2017 19:07:52 01/07/20 17 01/08/2017 lipid panel , serum LDL cholesterol calc 90 mg/dL 0-99 Not Available [facility] ([facility]) [address] [facility], [place], [address], 01/08/2017 19:07:52 01/07/2001/08/2017 lipid panel , serum comment: DEMO SPECIALIST Not Available [facility] ([facility]) [address] [facility], [place], [address], 01/08/2017 19:07:52 01/07/20 17 01/08/2017 lipid panel , serum LDL/HDL ratio 0.8 ratio _unit s 0.0-3. 6 LDL/H DL RATIO MEN WOMEN 1/2 AVG.R ISK 1.0 1.5 AVG.R ISK 3.6 3.2 2X AVG.R ISK 6.2 5.0 3X AVG.R ISK 8.0 6.1 Not Available [facility] ([facility]) [address] [facility], [place], [address], 01/08/2017 19:07:52 01/07/20 17 01/08/2017 PT/PT T, plasm a INR 0.9 0.8-1. 2 REFER ENCE INTER SAVANAH IS FOR NON-A NTICO AGULA LEONARD PATIE NTS. SUGGE STED INR THERA PEUTI C RANGE FOR VITAM IN K ANTAG ONIST THERA PY: STAND SCOTT DOSE (MODE RATE INTEN SITY THERA PEUTI C RANGE ): 2.0 - 3.0 HIGHE R INTEN SITY THERA PEUTI C RANGE 2.5 - 3.5 Not Available [facility] ([facility]) [address] [place], [address], 01/08/2017 19:07:53 01/07/20 17 01/08/2017 PT/PT T, plasm a prothrombin time 9.7 sec 9.1-12 .0 Not Available [facility] ([facility]) [address] [place], [address], 01/08/2017 19:07:53 01/07/20 17 01/08/2017 PT/PT T, plasm a APTT 29 sec 24-33 THIS TEST HAS NOT BEEN VALID ATED FOR MONIT ORING UNFRA CTION ATED HEPAR IN THERA PY. APTT- BASED THERA PEUTI C RANGE S FOR UNFRA CTION ATED HEPAR IN THERA PY HAVE NOT BEEN ESTAB ARVIN [place] FOR GENER AL GUIDE LINES ON HEPAR IN MONIT ORING , REFER TO THE [facility] DIREC TORY OF CHRISS OGDEN. Not Available [facility] ([facility]) [address] [facility], [place], [address], 01/08/2017 19:07:53 01/07/20 17 01/08/2017 testo stero ne, free + total , serum testosterone , serum 135 NG/dL 348-11 97 below low normal Not Available [facility] ([facility]) [address] [place], [address], 01/08/2017 19:07:53 01/07/2001/08/2017 testo stero ne, free + total , serum comment: COMMEN T ADULT MALE REFER ENCE INTER SAVANAH IS BASED ON A POPUL ATION OF LEAN MALES UP TO 40 YEARS OLD. Not Available [facility] ([facility]) [address] [place], [address], 01/08/2017 19:07:53 01/07/2001/08/2017 testo stero ne, free + total , serum free testosterone (direct) 10.9 pg/mL 6.8-21 .5 Not Available [facility] ([facility]) [address] [place], [address], 01/08/2017 19:07:53 01/07/2001/08/2017 amyla se + lipas e, serum amylase, serum 68 U/L 31-124 Not Available [facility] ([facility]) [address] [place], [address], 01/08/2017 19:07:53 01/07/20 17 01/08/2017 amyla se + lipas e, serum lipase, serum 20 U/L 0-59 Not Available [facility] ([facility]) [address] [place], [address], 01/08/2017 19:07:53 01/07/2001/08/2017 PSA, serum or plasm a prostate specific Ag, serum 1.3 NG/mL 0.0-4. 0 NORIS ECLIA METHO DOLOG Y. ACCOR DING TO THE [employer] [employer] N, SERUM PSA SHOUL D DECRE ASE AND REMAI N AT UNDET ECTAB LE LEVEL S AFTER RADIC AL PROST ATECT ROXANE. THE AUA DEFIN ES BIOCH EMICA L RECUR RENCE AN INITI AL PSA VALUE 0.2 NG/ML OR GREAT ER FOLLO WED BY A SUBSE QUENT CONFI RMATO RY PSA VALUE 0.2 NG/ML OR GREAT ER. VALUE S OBTAI ALEX WITH DIFFE RENT ASSAY METHO DS OR KITS CANNO T BE USED INTER RUBIO EADIONTEY . RESUL TS CANNO T BE INTER PRETE D ABSOL MANCHESTER EVIDE NCE OF THE PRESE NCE OR ABSEN CE OF DOUG BUENO DISEA SE. Not Available [facility] ([facility]) [address] [facility], [place], [address], 01/08/2017 19:07:54 01/07/20 17 01/12/2017 drug scree n, urine summary FINAL ===== ===== ===== ===== ===== ===== ===== ===== ===== ===== ===== ===== ===== === TOXAS SURE COMP DRUG SANAZ SIS,U R ===== ===== ===== ===== ===== ===== ===== ===== ===== ===== ===== ===== ===== === TEST RESUL T FLAG UNITS DRUG PRESE NT HYDRO CODON E 291 NG/MG CREAT HYDRO MORPH ONE 80 NG/MG CREAT DIHYD ROCOD EINE 81 NG/MG CREAT NORHY DROCO DONE 59 NG/MG CREAT SOURC ES OF HYDRO CODON E INCLU DE SCHED ULED PRESC RIPTI ON MEDIC ATION S. HYDRO MORPH ONE, DIHYD ROCOD EINE AND NORHY DROCO DONE ARE EXPEC LEONARD METAB OLITE S OF HYDRO CODON E. HYDRO MORPH ONE AND DIHYD ROCOD EINE ARE ALSO AVAIL ABLE SCHED ULED PRESC RIPTI ON MEDIC ATION S. ===== ===== ===== ===== ===== ===== ===== ===== ===== ===== ===== ===== ===== === TEST RESUL T FLAG UNITS REF RANGE CREAT ININE 147 MG/DL >=20 ===== ===== ===== ===== ===== ===== ===== ===== ===== ===== ===== ===== ===== === DECLA RED MEDIC ATION S: MEDIC ATION LIST WAS NOT PROVI DED. ===== ===== ===== ===== ===== ===== ===== ===== ===== ===== ===== ===== ===== === FOR CLINI ALLISON CONSU LTATI ON, PLEAS E CALL . ===== ===== ===== ===== ===== ===== ===== ===== ===== ===== ===== ===== ===== === Not Available [facility] [address], [place], [address], 01/12/2017 17:09:34 01/07/20 17 01/12/2017 drug scree n, urine pdf . Not Available [facility] [address], [place], [address], 01/12/2017 17:09:34 09/24/20 18 09/25/2018 CMP, serum or plasm a glucose 61 mg/dL 65-99 below low normal Not Available [facility] ([facility]) [address] [place], [address], 09/25/2018 15:10:06 09/24/20 18 09/25/2018 CMP, serum or plasm a BUN 9 mg/dL 6-24 Not Available [facility] ([facility]) [address] [place], [address], 09/25/2018 15:10:06 09/24/20 18 09/25/2018 CMP, serum or plasm a creatinine 0.76 mg/dL 0.76-1 .27 Not Available [facility] ([facility]) [address] [place], [address], 09/25/2018 15:10:06 09/24/20 18 09/25/2018 CMP, serum or plasm a eGFR if nonafricn AM 111 mL/mi n/1.7 3 >59 Not Available [facility] ([facility]) [address] [facility] [place], [address], 09/25/2018 15:10:06 09/24/20 18 09/25/2018 CMP, serum or plasm a eGFR if africn AM 128 mL/mi n/1.7 3 >59 Not Available [facility] ([facility]) [address] [facility], [place], [address], 09/25/2018 15:10:06 09/24/20 18 09/25/2018 CMP, serum or plasm a BUN/creatini ne ratio 12 9-20 Not Available [facility] ([facility]) [address] [facility], [place], [address], 09/25/2018 15:10:06 09/24/20 18 09/25/2018 CMP, serum or plasm a sodium 141 mmol/ L 134-14 4 Not Available [facility] ([facility]) [address] [place], [address], 09/25/2018 15:10:06 09/24/20 18 09/25/2018 CMP, serum or plasm a potassium 4.5 mmol/ L 3.5-5. 2 Not Available [facility] ([facility]) [address] [facility] [place], [address], 09/25/2018 15:10:06 09/24/20 18 09/25/2018 CMP, serum or plasm a chloride 98 mmol/ L 96-106 Not Available [facility] ([facility]) [address] [facility], [place], [address], 09/25/2018 15:10:06 09/24/20 18 09/25/2018 CMP, serum or plasm a carbon dioxide, total 16 mmol/ L 20-29 below low normal Not Available [facility] ([facility]) [address] [place], [address], 09/25/2018 15:10:06 09/24/20 18 09/25/2018 CMP, serum or plasm a calcium 9.5 mg/dL 8.7-10 .2 Not Available [facility] ([facility]) [address] [place], [address], 09/25/2018 15:10:06 09/24/20 18 09/25/2018 CMP, serum or plasm a protein, total 7.4 g/dL 6.0-8. 5 Not Available [facility] ([facility]) [address] [place], [address], 09/25/2018 15:10:06 09/24/20 18 09/25/2018 CMP, serum or plasm a albumin 4.7 g/dL 3.5-5. 5 Not Available [facility] ([facility]) [address] [facility] [place], [address], 09/25/2018 15:10:06 09/24/20 18 09/25/2018 CMP, serum or plasm a globulin, total 2.7 g/dL 1.5-4. 5 Not Available [facility] ([facility]) [address] [facility] [place], [address], 09/25/2018 15:10:06 09/24/20 18 09/25/2018 CMP, serum or plasm a A/G ratio 1.7 1.2-2. 2 Not Available [facility] ([facility]) [address] [place], [address], 09/25/2018 15:10:06 09/24/20 18 09/25/2018 CMP, serum or plasm a bilirubin, total 0.4 mg/dL 0.0-1. 2 Not Available [facility] ([facility]) [address] [place], [address], 09/25/2018 15:10:06 09/24/20 18 09/25/2018 CMP, serum or plasm a alkaline phosphatase 71 IU/L 39-117 Not Available [facility] ([facility]) [address] [facility], [address], 09/25/2018 15:10:06 09/24/20 18 09/25/2018 CMP, serum or plasm a AST (SGOT) 96 IU/L 0-40 above high normal Not Available [facility] ([facility]) [address] [facility], [place], [address], 09/25/2018 15:10:06 09/24/20 18 09/25/2018 CMP, serum or plasm a ALT (SGPT) 124 IU/L 0-44 above high normal Not Available [facility] ([facility]) [address] [facility], [place], [address], 09/25/2018 15:10:06 09/24/20 18 09/25/2018 CBC w/ auto diff WBC 7.1 x10e3 /uL 3.4-10 .8 Not Available [facility] ([facility]) [address] [facility], [place], [address], 09/25/2018 15:10:06 09/24/20 18 09/25/2018 CBC w/ auto diff RBC 5.36 x10e6 /uL 4.14-5 .80 Not Available [facility] ([facility]) [address] [facility], [place], [address], 09/25/2018 15:10:06 09/24/20 18 09/25/2018 CBC w/ auto diff hemoglobin 16.9 g/dL 13.0-1 7.7 Not Available [facility] ([facility]) [address] [facility], [place], [address], 09/25/2018 15:10:06 09/24/20 18 09/25/2018 CBC w/ auto diff hematocrit 48.0 % 37.5-5 1.0 Not Available [facility] ([facility]) [address] [facility], [place], [address], 09/25/2018 15:10:06 09/24/20 18 09/25/2018 CBC w/ auto diff MCV 90 fL 79-97 Not Available [facility] ([facility]) [address] [facility], [place], [address], 09/25/2018 15:10:06 09/24/20 18 09/25/2018 CBC w/ auto diff MCH 31.5 pg 26.6-3 3.0 Not Available [facility] ([facility]) [address] [facility], [place], [address], 09/25/2018 15:10:06 09/24/20 18 09/25/2018 CBC w/ auto diff MCHC 35.2 g/dL 31.5-3 5.7 Not Available [facility] ([facility]) [address] [facility], [place], [address], 09/25/2018 15:10:06 09/24/20 18 09/25/2018 CBC w/ auto diff RDW 14.7 % 12.3-1 5.4 Not Available [facility] ([facility]) [address] [place] [address], [place], [address], 09/25/2018 15:10:06 09/24/20 18 09/25/2018 CBC w/ auto diff platelets 203 x10e3 /uL 150-37 9 Not Available [facility] ([facility]) [address] [facility], [place], [address], 09/25/2018 15:10:06 09/24/20 18 09/25/2018 CBC w/ auto diff neutrophils 54 % not estab. Not Available [facility] ([facility]) [address] [facility], [place], [address], 09/25/2018 15:10:06 09/24/20 18 09/25 [id number]|2025-04-14 10:34:05|2025-04-14 10:34:05|[id number]||||"Anes - Initial Pre Proc Eval Procedure: Operation Date: 04/14/25 11:30 Proposed Procedures p Esophagogastroduodenoscopy & Colonoscopy - Rock Mcdonald MD Date/Time: 04/14/25 10:34 Surgeon: Rock Mcdonald MD Pre Op Diagnosis: GERD, Iron deficiency anemia, Melena Patient Data Age: 49 Gender: M Height: 1.88 m Weight: 95.8 kg Last Vital Signs Temp 36.4 C L 04/14/25 10:25 Pulse 85 04/14/25 10:25 Resp 16 04/14/25 10:25 BP 148/96 H 04/14/25 10:25 Pulse Ox 100 04/14/25 10:25 O2 Del Method Room Air 04/14/25 10:25 Allergies Allergy/AdvReac Type Severity Reaction Status Date / Time No Known Allergies Allergy Verified 04/14/25 10:23 Home Medications Medication Instructions Recorded Confirmed Type acetaminophen 325 mg tablet 350 mg PO DAILY 03/31/24 04/05/25 History apixaban 5 mg tablet (Eliquis) 5 mg PO BID 03/31/24 04/14/25 History hydrocodone 5 mg-acetaminophen 325 1 tablet PO TID 03/31/24 04/14/25 History mg tablet omeprazole 40 mg capsule,delayed 40 mg PO DAILY 03/31/24 04/14/25 History release pregabalin 150 mg capsule 200 mg PO BID 03/31/24 04/14/25 History Patient hx anesthesia problems: none Family hx anesthesia problems: none Results Review: All pre-operative results and documents have been reviewed as part of the pre-operative evaluation. [facility] Past Medical History Medical History Black stools DVT (deep venous thrombosis) Chronic alcohol use Fatty liver Elevated LFTs Epistaxis Vomiting GERD (gastroesophageal reflux disease) Iron deficiency anemia Myalgia Pulmonary embolism Inflammatory arthritis Avascular necrosis of bones of both hips Hypertension Surgical History Surgical History No pertinent past surgical history Family History Family History Other Diabetes mellitus Heart disease Hypertension Social History Social History Smoking packs per day: 0.5 Smoking cigarettes per day: 10.0 Years smoked: 15 Smoking pack-years: 7.50 Smoking status: Former smoker Tobacco type: cigarettes Additional smoking assessment comments: occ. smokes a cigar now and them Alcohol intake: current Substance use: never Substance use type: does not use Lack of Transportation: No Lack of Food: Never True Current Housing: I Have Housing Concerned About Future Housing: No Difficulty Paying Gas/Electric Bills: No Difficulty Paying for Meds: No Currently Unemployed: No Education: Decline to Answer Difficulty w/ Childcare or Family Care: No Living arrangements: with family Spiritual care concerns: No Anes - Eval Final PreProcedure Day of Procedure 04/14/25 10:34 Patient weight: overweight Heart: regular rate and rhythm Lungs: clear to auscultation Airway: Mallampati scale class II Neurological: alert and oriented Last oral intake: >/= 8 hours ASA classification: III Emergent: no Anesthetic plan: proceed Anesthesia type and monitoring: general GIVS and standard monitoring Results Review: All pre-operative results and documents have been reviewed as part of the pre-operative evaluation. Informed Consent: The patient's anesthetic plan and its attendant risks and benefits were discussed with the patient/family/POA. Questions were solicited and answers provided to the satisfaction of the patient/family/POA."
[2025-04-14 10:25] VITALS: BP 148/96; PULSE 85; RESP 16; TEMP 36.4; O2SAT 100
[2025-04-14 10:26] VITALS: BMI 27.1
--- NOTE | 2025-04-14 10:34 | P.PNAN_ITS ---
Anes - Initial Pre Proc Eval Procedure: Operation Date: 04/14/25 11:30 Proposed Procedures p Esophagogastroduodenoscopy & Colonoscopy - Rock Mcdonald MD Date/Time: 04/14/25 10:34 Surgeon: Rock Mcdonald MD Pre Op Diagnosis: GERD, Iron deficiency anemia, Melena Patient Data Age: 49 Gender: M Height: 1.88 m Weight: 95.8 kg Last Vital Signs Temp 36.4 C L 04/14/25 10:25 Pulse 85 04/14/25 10:25 Resp 16 04/14/25 10:25 BP 148/96 H 04/14/25 10:25 Pulse Ox 100 04/14/25 10:25 O2 Del Method Room Air 04/14/25 10:25 Allergies Allergy/AdvReac Type Severity Reaction Status Date / Time No Known Allergies Allergy Verified 04/14/25 10:23 Home Medications Medication Instructions Recorded Confirmed Type acetaminophen 325 mg tablet 350 mg PO DAILY 03/31/24 04/05/25 History apixaban 5 mg tablet (Eliquis) 5 mg PO BID 03/31/24 04/14/25 History hydrocodone 5 mg-acetaminophen 325 1 tablet PO TID 03/31/24 04/14/25 History mg tablet omeprazole 40 mg capsule,delayed 40 mg PO DAILY 03/31/24 04/14/25 History release pregabalin 150 mg capsule 200 mg PO BID 03/31/24 04/14/25 History Patient hx anesthesia problems: none Family hx anesthesia problems: none Results Review: All pre-operative results and documents have been reviewed as part of the pre- operative evaluation. [facility] Past Medical History Medical History Black stools DVT (deep venous thrombosis) Chronic alcohol use Fatty liver Elevated LFTs Epistaxis Vomiting GERD (gastroesophageal reflux disease) Iron deficiency anemia Myalgia Pulmonary embolism Inflammatory arthritis Avascular necrosis of bones of both hips Hypertension Surgical History Surgical History No pertinent past surgical history Family History Family History Other Diabetes mellitus Heart disease Hypertension Social History Social History Smoking packs per day: 0.5 Smoking cigarettes per day: 10.0 Years smoked: 15 Smoking pack-years: 7.50 Smoking status: Former smoker Tobacco type: cigarettes Additional smoking assessment comments: occ. smokes a cigar now and them Alcohol intake: current Substance use: never Substance use type: does not use Lack of Transportation: No Lack of Food: Never True Current Housing: I Have Housing Concerned About Future Housing: No Difficulty Paying Gas/Electric Bills: No Difficulty Paying for Meds: No Currently Unemployed: No Education: Decline to Answer Difficulty w/ Childcare or Family Care: No Living arrangements: with family Spiritual care concerns: No Anes - Eval Final PreProcedure Day of Procedure 04/14/25 10:34 Patient weight: overweight Heart: regular rate and rhythm Lungs: clear to auscultation Airway: Mallampati scale class II Neurological: alert and oriented Last oral intake: >/= 8 hours ASA classification: III Emergent: no Anesthetic plan: proceed Anesthesia type and monitoring: general GIVS and standard monitoring Results Review: All pre-operative results and documents have been reviewed as part of the pre- operative evaluation. Informed Consent: The patient's anesthetic plan and its attendant risks and benefits were discussed with the patient/family/POA. Questions were solicited and answers provided to the satisfaction of the patient/family/POA.
[2025-04-14] MEDS: LACTATED RINGERS 1,000 ML 150 ML IV CONT (10:36)
--- NOTE | 2025-04-14 11:26 | PM.HPGS ---
History of Present Illness History of Present Illness Consent: Risks, benefits, and alternatives have been discussed and questions answered. Patient agrees to proceed with procedure. Chief complaint: GERD, Iron deficiency anemia, Melena Narrative: Mateo Jerry Jr. is a 49 year old male here for egd and colonoscopy, last one 2019. He has anemia, also nausea. Denies overt gib. He is using eliquis Review of Systems Review of Systems: All systems reviewed & are unremarkable except as noted in HPI and below PMFSH Past Medical History Medical History Black stools DVT (deep venous thrombosis) Chronic alcohol use Fatty liver Elevated LFTs Epistaxis Vomiting GERD (gastroesophageal reflux disease) Iron deficiency anemia Myalgia Pulmonary embolism Inflammatory arthritis Avascular necrosis of bones of both hips Hypertension Surgical History Surgical History No pertinent past surgical history Family History Family History Other Diabetes mellitus Heart disease Hypertension Social History Social History Smoking packs per day: 0.5 Smoking cigarettes per day: 10.0 Years smoked: 15 Smoking pack-years: 7.50 Smoking status: Former smoker Tobacco type: cigarettes Additional smoking assessment comments: occ. smokes a cigar now and them Alcohol intake: current Substance use: never Substance use type: does not use Lack of Transportation: No Lack of Food: Never True Current Housing: I Have Housing Concerned About Future Housing: No Difficulty Paying Gas/Electric Bills: No Difficulty Paying for Meds: No Currently Unemployed: No Education: Decline to Answer Difficulty w/ Childcare or Family Care: No Living arrangements: with family Spiritual care concerns: No Meds Home Medications and Allergies Home Medications Medication Instructions Recorded Confirmed Type acetaminophen 325 mg tablet 350 mg PO DAILY 03/31/24 04/05/25 History apixaban 5 mg tablet (Eliquis) 5 mg PO BID 03/31/24 04/14/25 History hydrocodone 5 mg-acetaminophen 325 1 tablet PO TID 03/31/24 04/14/25 History mg tablet omeprazole 40 mg capsule,delayed 40 mg PO DAILY 03/31/24 04/14/25 History release pregabalin 150 mg capsule 200 mg PO BID 03/31/24 04/14/25 History Allergies Allergy/AdvReac Type Severity Reaction Status Date / Time No Known Allergies Allergy Verified 04/14/25 10:23 Vital Signs Vital Signs - 24 hr 04/14/25 10:25 Temperature 97.5 F L Pulse Rate 85 Respiratory Rate 16 Blood Pressure 148/96 H Pulse Oximetry 100 Oxygen Delivery Room Air Exam Const: General: comfortable and no acute distress HENMT: Face/Nose/Sinus: Normal nares present Eyes: General: appearance normal, both eyes and all related structures Neck: Neck: no JVD Resp: Auscultation: clear to auscultation bilaterally Cardio: Rate: regular rate Rhythm: regular rhythm GI: Inspection: non-distended GI Palp: Yes Soft to palpation Skin: General skin exam: normal color Neuro: General: gait normal Speech: normal speech Extrem: General: normal to inspection Psych: Mental Status: mental status grossly normal Assessment and Plan Assessment and plan (1) Vomiting: Code(s): R11.10 - Vomiting, unspecified Status: Acute Assessment and Plan: egd (2) Iron deficiency anemia: Code(s): D50.9 - Iron deficiency anemia, unspecified Status: Acute Assessment and Plan: colonoscopy
[2025-04-14 11:48] VITALS: BP 124/72; PULSE 88; RESP 16; O2SAT 100
[2025-04-14 11:57] VITALS: BP 129/73; PULSE 81; RESP 16; O2SAT 100
[2025-04-14 12:06] VITALS: BP 129/82; PULSE 74; RESP 16; O2SAT 100
== END 2025-04-14 12:23 | disposition home or self-care (01) ==
PROVIDERS: PCP Nurse Practitioner Family; Referring Provider Nurse Practitioner Family; Visit Provider Internal Medicine Gastroenterology
PROC: 0DJ08ZZ Inspection of Upper Intestinal Tract, Via Natural or Artificial Opening Endoscopic (ICD-10-PCS; CPT 45378; principal; 2025-04-14 11:30)
DX: D50.9 Iron deficiency anemia, unspecified (principal); D12.3 Benign neoplasm of transverse colon; K64.8 Other hemorrhoids; K21.9 Gastro-esophageal reflux disease without esophagitis; I10 Essential (primary) hypertension; M06.4 Inflammatory polyarthropathy; F17.290 Nicotine dependence, other tobacco product, uncomplicated; Z79.01 Long term (current) use of anticoagulants; Z79.891 Long term (current) use of opiate analgesic; Z86.718 Personal history of other venous thrombosis and embolism; Z86.711 Personal history of pulmonary embolism; Z87.39 Personal history of other diseases of the musculoskeletal system and connective tissue; Z82.49 Family history of ischemic heart disease and other diseases of the circulatory system
CPT/HCPCS: 43239; 45385; 88305; J2704; J7120

== ENCOUNTER 2025-08-22 09:31 | Outpatient (CLI) | payer OTHER, MEDICAID, SELFPAY ==
--- OUTSIDE RECORDS SUMMARY | 2025-08-22 10:15 | XMS_ITS | Clinical Summary ---
Author Organization [facility] Address [address] [place] [address] Phone Care Team Providers Care Assistant Reading Teacher Name Role Phone Bree Melendez MD Primary Care Provider + Allergies No known active allergies Medications omeprazole (PriLOSEC) 40 MG CAPSULE DELAYED RELEASE omeprazole 40 mg capsule,delayed release TAKE 1 CAPSULE BY MOUTH EVERY DAY 1 Active albuterol 108 (90 Base) MCG/ACT Aerosol Solution INHALE 2 PUFFS BY MOUTH EVERY 4 HOURS NEEDED 2 Active gabapentin (NEURONTIN) 300 MG Capsule TAKE 1 CAPSULE BY MOUTH TWICE DAILY NEEDED FOR PAIN 60 Capsule 2 2 Active Active Problems Problem Noted Date Diagnosed Date Bilateral leg pain 01/24/2022 Deep venous embolism and thr ombosis of right lower extremity 12/25/2021 History of pulmonary embolism 12/25/2021 Family History Medical History Relation Name Comments Cancer Father Stroke Father Diabetes Mother Hypertension Mother Relation Name Status Comments Father Mother Alive Social History Tobacco Use Types Packs/Day Years Used Date Smoking Tobacco: Former Cigarettes 0.5 10 Smokeless Tobacco: Never Alcohol Use Standard Drinks/Week Comments Yes 0 (1 standard drink = 0.6 oz pur e alcohol) daily Sex and Gender Information Value Date Recorded Sex Assigned at Not on file Legal Sex Male 1:46 PM SCHEDULE ANALYST Gender Identity Not on file Sexual Orientation Not on file Last Filed Vital Signs Vital Sign Reading Time Taken Comments Blood Pressure 150/90 12/25/2021 1:30 PM SCHEDULE ANALYST Pulse 92 12/25/2021 1:30 PM SCHEDULE ANALYST Temperature 35.9 C (96.6 F) 12/25/2021 1:30 PM SCHEDULE ANALYST Respiratory Rate 18 12/25/2021 1:30 PM SCHEDULE ANALYST Oxygen Saturation 98% 12/25/2021 1:30 PM SCHEDULE ANALYST Inhaled Oxygen Concentration - - Weight 97.6 kg (215 lb 3.2 oz) 12/25/2021 1:30 P M SCHEDULE ANALYST Height 188 cm (6' 2) 12/25/2021 1:30 PM SCHEDULE ANALYST Body Mass Index 27.63 12/25/2021 1:30 PM SCHEDULE ANALYST Plan of Treatment Health Maintenance Due Date Last Done Comments Hepatitis C Virus (HCV) Screening 1973 TdaP Immunization 1973 Hepatitis B Immunization (1 of 3 - 19+ 3-dose series) 1992 Cologuard 2018 Colonoscopy 2018 Colorectal Cancer Screening 2018 Immunochemical Fecal Occult Blood 2018 Pneumococcal Immunization (5 0+ years) (1 of 1 - PCV) 2023 11/30/2001 Zoster Immunization (1 of 2) 2023 Influenza Immunization (#1) 2025 SARS-COV-2 Immunization ( - season) 2025 Respiratory Syncytial Virus (RSV) Immunization (Adult) (1 - 1-dose 75+ series) 2048 Pneumococcal Immunization Combined Discontinued 2001 Human Papillomavirus (HPV) Immunization Aged Out No longer eligible b ased on patient's age to complete this topic Meningococcal Immunization (ACWY) Aged Out No longer eligible based on patient's age to complete this topic Rotavirus Immunization Aged Out No lo nger eligible based on patient's age to complete this topic Insurance MEDICAID SEGAL [facility] [employer] Care Teams Assistant Reading Teacher Relationship Specialty Start Date End Date Bree Melendez MD [address] [place] [id number] PCP - General Family Medicine 12/25/21
--- OUTSIDE RECORDS SUMMARY | 2025-08-22 10:15 | XMS_ITS | Clinical Summary ---
Author Organization [facility] Address [address] [facility] [facility] [address] Care Team Providers Care Bar Finish Operator Name Role Phone Unavailable Primary Care Provider Unavailabl e Allergies No known active allergies Medications pregabalin (LYRICA) 100 mg Capsule Take 100 mg by mouth every 12 hours. Active apixaban (Eliquis) 5 mg tablet Take 5 mg by mouth 2 times daily. Active omeprazole (PriLOSEC) 40 mg Capsule, Delayed Release(E.C.) Take 40 mg by mouth daily. Active cyclobenzaprine (FLEXERIL) 5 mg Tablet Take 5 mg by mouth 3 times daily as needed. 06/23/2024 Active Active Problems No known active problems Encounters Date Type Department Care Team Description 08/16/2025 External Device Data [facility] ABSTRACTION Provider, Abstract from Last 3 Months Family History Medical History Relation Name Comments No Known Problems Brother No Known Problems Child Liver Cancer Father Diabetes Mother No Known Problems Sister Relation Name Status Comments Brother Alive Child Alive Father Mother Alive Sister Alive Social History Tobacco Use Types Packs/Day Years Used Date Smoking Tobacco: Some Days Cigars Smokeless Tobacco: Never Tobacco Cessation:Ready to Q uit: Not Asked; Counseling Given: Not Answered Alcohol Use Standard Drinks/Week Comments Yes 0 (1 standard drink = 0.6 oz pur e alcohol) Socially Sex and Gender Information Value Date Recorded Sex Assigned at Not on file Legal Sex Male 8:44 AM CDT Gender Identity Not on file Sexual Orientation Not on file Last Filed Vital Signs Vital Sign Reading Time Taken Comments Blood Pressure 142/91 03/31/2025 10:11 AM CDT Pulse 93 03/31/2025 10:09 AM CDT Temperature 36.4 C (97.6 F) 03/31/2025 10:09 AM CDT Respiratory Rate 15 03/31/2025 10:09 AM CDT Oxygen Saturation 97% 03/31/2025 10:09 AM CDT Inhaled Oxygen Concentration - - Weight 94.5 kg (208 lb 6.4 oz) 03/31/2025 10:09 AM CDT Height 188 cm (6' 2) 03/21/2024 11:04 AM CDT Body Mass Index 26.76 03/21/2024 11:04 AM CDT Plan of Treatment Health Maintenance Due Date Last Done Comments Pre-Diabetes and Diabetes Screening 1973 DTAP/TDAP/TD VACCINES (1 - Tdap) 1992 HEPATITIS B VACCINES (1 of 3 - 19+ 3-dose series) 10/01 COLORECTAL SCREENING 2018 Colorectal Cancer Screening 2018 FIT-DNA Q 3 years 2018 FIT/FOBT Q 1 year 2018 Flex Sig/CT Colonography Q 5 years 2018 ZOSTER VACCINE (1 of 2) 2023 INFLUENZA VACCINE (#1) 2025 Abdominal Aortic Aneurysm (AAA) Screening Completed 10/14/2024 Procedures Procedure Name Priority Date/Time Associated Diagnosis Comments US ABDOMEN COMPLETE Routine 10/14/2024 10:04 AM SCREEN CUTTER AND TRIMMER from Last 3 Months or Most Recently Relevant to Health Maintenance Results * US ABDOMEN COMPLETE (10/14/2024 10:04 AM SCREEN CUTTER AND TRIMMER) Anatomical Region Laterality Modality Abdomen Ultrasound Donald Williamson MD US ORDERABLES Final Result from Last 3 Months or Most Recently Relevant to Health Maintenance Insurance [place] [facility] [id number]
--- OUTSIDE RECORDS SUMMARY | 2025-08-22 10:15 | XMS_ITS | Clinical Summary ---
Author Organization [facility] Address [address] [place] [address] Care Team Providers Care Forming Department Supervisor Name Role Phone Loida Jessica APRN-DEVELOPMENT SCIENTIST Primary Care Provider + Source Comments [facility],non-owned Affiliates and Associated Physician Practices is amultiple site organization consisting of ambulatory clinics and hospital sitesin [place], [place], [place] and [place]. This disclosure is being madepursuant to the Care Everywhere program and may not contain all information available regarding this patient. Last updated 18.[facility] Allergies No known active allergies Medications * Be aware that medications may not be up to date on this document. Alwaysverify current medications with the patient. Eliquis 5 MG tablet Take 1 (one) tablet by mouth 2 times daily Active cyclobenzaprine (Flexeril) 5 MG tablet Take 1 (one) tablet by mouth every 8 hours as needed 06/23/2024 Active HYDROcodone-karan taminophen ([place]) 5-325 MG tablet Take 1 (one) tablet by mouth 3 times daily as needed 01/06/2025 Active omeprazole (PriLOSEC) 40 MG capsule Take 1 (one) capsule by mouth once daily Active pregabalin (Lyrica) 200 MG capsule Take 1 (one) capsule by mouth 2 times daily 01/06/2025 Active tadalafil (Cialis) 20 MG tablet 12/12/2024 Active albuterol HFA (Proventil; Ventolin; Proair) 108 (90 Base) MCG/ACT inhaler Inhale 2 (two) puffs by mouth every 4 hours as needed Active celecoxib (CeleBREX) 200 MG capsule Active Active Problems No known active problems Social History Tobacco Use Types Packs/Day Years Used Date Smoking Tobacco: Every Day Cigars Smokeless Tobacco: Never Tobacco Cessation:Ready to Q uit: Not Asked; Counseling Given: Not Answered Alcohol Use Standard Drinks/Week Comments Yes 0 (1 standard drink = 0.6 oz pur e alcohol) PHQ-2 Answer Date Recorded Patient Health Questionnaire-2 Score 0 02/23/2025 Sex and Gender Information Value Date Recorded Sex Assigned at Not on file Legal Sex Male 6:21 AM DIMENSION QUARRY SUPERVISOR Gender Identity Not on file Sexual Orientation Not on file Last Filed Vital Signs Vital Sign Reading Time Taken Comments Blood Pressure 122/90 02/23/2025 2:09 PM CDT Pulse 80 02/23/2025 2:09 PM CDT Temperature 36.4 C (97.5 F) 02/23/2025 2:09 PM CDT Respiratory Rate 16 02/23/2025 2:09 PM CDT Oxygen Saturation 100% 02/23/2025 2:09 PM CDT Inhaled Oxygen Concentration - - Weight 98.3 kg (216 lb 12.8 oz) 02/23/2025 2:09 PM CDT Height - - Body Mass Index - - Plan of Treatment Health Maintenance Due Date Last Done Comments COLOGUARD (AGES 45-75) - COL ON CA SCREENING 1973 COLON MONITORING 1973 COLONOSCOPY - COLON CA SCREENING 1973 CT COLONOGRAPHY - COLON CA SCREENING 1973 Colorectal Cancer Screening 1973 FIT - COLON CA SCREENING 1973 FLEX SIG - COLON CA SCREENING 1973 LIPID TESTING 1973 HIV SCREENING 1988 DTAP/TDAP/TD VACCINES (1 - Tdap) 1992 HEPATITIS B VACCINE (1 of 3 - 19+ 3-dose series) 1992 PNEUMOCOCCAL VACCINE 50+ (1 of 2 - PCV) 1992 ZOSTER VACCINE (1 of 2) 2023 COVID-19 VACCINE (1 - 2023-2 5 season) 2025 INFLUENZA VACCINE (#1) 2025 DEPRESSION SCREENING Completed 01/24/2025 HEPATITIS C SCREENING Completed 02/03/2025 HIB VACCINE Aged Out No longer eligi ble based on patient's age to complete this topic HPV VACCINE Aged Out No longer eligi ble based on patient's age to complete this topic MENINGOCOCCAL (Group B) VACC INE SHARED DECISION-MAKING Aged Out No longer eligibl e based on patient's age to complete this topic MENINGOCOCCAL GROUPS A/C/Y/W VACCINE Aged Out No longer eligible b ased on patient's age to complete this topic Procedures Procedure Name Priority Date/Time Associated Diagnosis Comments HEPATITIS SCREEN ACUTE ([facility]) Routine 02/03/2025 1:19 PM DIMENSION QUARRY SUPERVISOR Polyarthralgia Other low back pain Numbness Elevated ferritin Encounter for long-term (current) use of high-risk medication Psoriasis from Last 3 Months or Most Recently Relevant to Health Maintenance Results * HEPATITIS SCREEN ACUTE ([facility]) (02/03/2025 1:19 PM DIMENSION QUARRY SUPERVISOR) Hepatitis A Virus Antibody IgM Negative Negative [facility] INSURANCE BILL Comment: A negative anti-HAV IgM result suggests no recent or current HAV infection. Hepatitis B Virus Surface Antigen Negative Negative [facility] INSURANCE BILL Hepatitis B Core Virus Antibody IgM Negative Negative [facility] INSURANCE BILL Hepatitis C Antibody Non Reactive Non Reactive [facility] INSURANCE BILL Comment: Performed at: [facility] [id number] Medical Social Worker: Ariel Arias PhD, Phone: [phone] Interpretation Comment [facility] INSURANCE BILL Comment: Not infected with HCV unless early or acute infection is suspected (which may be delayed in an immunocompromised individual), or other evidence exists to indicate HCV infection. Blood BLOOD SPECIMEN / Unknown 02/03/2025 1:19 PM DIMENSION QUARRY SUPERVISOR 02/03/2025 Narrative [facility] INSURANCE BILL - 02/04/2025 7:09 AM DIMENSION QUARRY SUPERVISOR Performed at: [facility] [id number] Medical Social Worker: Ariel Arias PhD, Phone: [phone] us Ted Bosch MD LAB - CHEMISTRY ORDERABLES Final Result [facility] INSURANCE BILL [id number] [place] [address] from Last 3 Months or Most Recently Relevant to Health Maintenance Insurance [facility] CARE MEDICAID - [place] Care Teams Forming Department Supervisor Relationship Specialty Start Date End Date Loida Jessica, NOVELTY MAKER-DEVELOPMENT SCIENTIST [address] [place] [address] [place] [id number] PCP - General Nurse Practitioner Family 01/24/25
[2025-08-22 10:22] LABS: INR 1.0; Prothrombin Time 13.8 Seconds (11.1-14.7)
[2025-08-22 11:00] LABS: Hepatitis B Surface Antigen Negative (Negative)
[2025-08-22 11:09] LABS: HAV RESULT Negative (Negative); Hepatitis B Core IgM Result Negative (Negative)
[2025-08-23 07:09] LABS: GGT 384 IU/L (0-65)
== END 2025-08-22 09:32 | disposition home or self-care (01) ==
LOC: ANHLAB 09:32
PROVIDERS: PCP Nurse Practitioner Family; Visit Provider Nurse Practitioner Family
DX: R79.89 Other specified abnormal findings of blood chemistry (principal); K76.0 Fatty (change of) liver, not elsewhere classified
CPT/HCPCS: 36415; 80074; 82103; 82390; 82977; 85610; 86015

== ENCOUNTER 2025-09-13 12:17 | Outpatient (CLI) | payer OTHER, MEDICAID, SELFPAY ==
--- NOTE | ~2025-09-13 | XR_ITS ---
EXAMINATION: XR abdomen/kub 1V, 09/13/2025 12:20 CDT HISTORY: ACUTE ABD PAIN BLOAT DISTENTION NO PRIOR HX NO SURG COMPARISON: No comparisons available. Technique: 3 view. Findings: Bowel gas pattern unremarkable. No obstruction. No free air. No abnormal calcifications No acute osseous abnormality. Impression: 1. No acute abnormality. Reviewed, dictated and finalized at location P. Impression: 1. No acute abnormality.
--- OUTSIDE RECORDS SUMMARY | 2025-09-13 14:02 | XMS_ITS | Clinical Summary ---
Author Organization [facility] Address [address] [place] [address] Care Team Providers Care Embroidery Supervisor Name Role Phone Unavailable Primary Care Provider [...] US ABDOMEN COMPLETE Routine 10/14/2024 10:04 AM PAINTING MANAGER from Last 3 Months or Most Recently Relevant to Health Maintenance Results * US ABDOMEN COMPLETE (10/14/2024 10:04 AM PAINTING MANAGER) Anatomical Region Laterality Modality Abdomen Ultrasound Donald Williamson MD US ORDERABLES Final Result from Last 3 Months or Most Recently Relevant to Health Maintenance Insurance [place] [place] [facility] [id number]
--- OUTSIDE RECORDS SUMMARY | 2025-09-13 14:02 | XMS_ITS | Clinical Summary ---
Author Organization [facility] Address [address] [place] [address] Care Team Providers Care Vault Custodian Name Role Phone Jaskaran Loidaannia Lobato APRN-BASEBALL INSPECTOR Primary Care Provider + Source Comments [facility],non-owned Affiliates and Associated Physician Practices is amultiple site organization consisting of ambulatory clinics and hospital sitesin [place], [place], [place] and [place]. This disclosure is being madepursuant to the Care Everywhere program and may not contain all information available regarding this patient. Last updated 18.[facility] Allergies No known active allergies Medications * Be aware that medications may not be up to date on this document. Alwaysverify current medications with the patient. Eliquis 5 MG tablet Take 1 (one) tablet by mouth 2 times daily Active cyclobenzaprine (Flexeril) 5 MG tablet Take 1 (one) tablet by mouth every 8 hours as needed 06/23/2024 Active HYDROcodone-karan taminophen ([place]) 5-325 MG tablet Take 1 (one) tablet [...] on file Legal Sex Male 6:21 AM LIVESTOCK BRANDS INSPECTOR Gender Identity Not on file Sexual Orientation [...] SCREEN ACUTE ([facility]) Routine 02/03/2025 1:19 PM LIVESTOCK BRANDS INSPECTOR Polyarthralgia Other low back pain Numbness Elevated ferritin Encounter for long-term (current) use of high-risk medication Psoriasis from Last 3 Months or Most Recently Relevant to Health Maintenance Results * HEPATITIS SCREEN ACUTE ([facility]) (02/03/2025 1:19 PM LIVESTOCK BRANDS INSPECTOR) Hepatitis A Virus Antibody IgM Negative Negative [facility] INSURANCE BILL Comment: A negative anti-HAV IgM result suggests no recent or current HAV infection. Hepatitis B Virus Surface Antigen Negative Negative [facility] INSURANCE BILL Hepatitis B Core Virus Antibody IgM Negative Negative [facility] INSURANCE BILL Hepatitis C Antibody Non Reactive Non Reactive [facility] INSURANCE BILL Comment: Performed at: [facility] [id number] Sea Kayaking Guide: Ariel Arias PhD, Phone: [phone] Interpretation Comment [facility] INSURANCE BILL Comment: Not infected with HCV unless early or acute infection is suspected (which may be delayed in an immunocompromised individual), or other evidence exists to indicate HCV infection. Blood BLOOD SPECIMEN / Unknown 02/03/2025 1:19 PM LIVESTOCK BRANDS INSPECTOR 02/03/2025 Narrative [facility] INSURANCE BILL - 02/04/2025 7:09 AM LIVESTOCK BRANDS INSPECTOR Performed at: [facility] [id number] Sea Kayaking Guide: Ariel Arias PhD, Phone: [phone] us Ted Bosch MD LAB - CHEMISTRY ORDERABLES Final Result [facility] INSURANCE BILL [id number] [place] [address] from Last 3 Months or Most Recently Relevant to Health Maintenance Insurance [facility] CARE MEDICAID - [place] Care Teams Vault Custodian Relationship Specialty Start Date End Date Loida Jessica, ARMATURE BALANCER-BASEBALL INSPECTOR [address] [place] [address] [place] [id number] PCP - General Nurse Practitioner Family 01/24/25
--- OUTSIDE RECORDS SUMMARY | 2025-09-13 14:02 | XMS_ITS | Clinical Summary ---
Author Organization [facility] Address [address] [place] [address] Phone Care Team Providers Care Senior Game Designer Name Role Phone Bree Melendez MD Primary [...] on file Legal Sex Male 1:46 PM DRAPERY AND UPHOLSTERY ESTIMATOR Gender Identity Not on file Sexual Orientation Not on file Last Filed Vital Signs Vital Sign Reading Time Taken Comments Blood Pressure 150/90 12/25/2021 1:30 PM DRAPERY AND UPHOLSTERY ESTIMATOR Pulse 92 12/25/2021 1:30 PM DRAPERY AND UPHOLSTERY ESTIMATOR Temperature 35.9 C (96.6 F) 12/25/2021 1:30 PM DRAPERY AND UPHOLSTERY ESTIMATOR Respiratory Rate 18 12/25/2021 1:30 PM DRAPERY AND UPHOLSTERY ESTIMATOR Oxygen Saturation 98% 12/25/2021 1:30 PM DRAPERY AND UPHOLSTERY ESTIMATOR Inhaled Oxygen Concentration - - Weight 97.6 kg (215 lb 3.2 oz) 12/25/2021 1:30 P M DRAPERY AND UPHOLSTERY ESTIMATOR Height 188 cm (6' 2) 12/25/2021 1:30 PM DRAPERY AND UPHOLSTERY ESTIMATOR Body Mass Index 27.63 12/25/2021 1:30 PM DRAPERY AND UPHOLSTERY ESTIMATOR Plan of Treatment Health Maintenance Due Date [...] to complete this topic Insurance MEDICAID [employer] [facility] Care Teams Senior Game Designer Relationship Specialty Start Date End Date Bree Melendez MD [address] [place] [phone] PCP - General Family Medicine 12/25/21
== END 2025-09-13 12:18 | disposition home or self-care (01) ==
PROVIDERS: PCP Nurse Practitioner Family; Visit Provider Nurse Practitioner Family
DX: R10.9 Unspecified abdominal pain (principal)
CPT/HCPCS: 74018